=== PATIENT | female | born 1960 | race Caucasian/White ===

== ENCOUNTER 2022-05-26 10:27 | Day surgery (SDC) | payer OTHER ==
[~2022-05-26 10:27] MED LIST: Acetaminophen 325 MG Tab PO SCH; Lactated Ringers 1,000 ML IV SCH; Lidocaine 1%/Sod Bicarbonate in NS 8.4% 1 ML Syringe IDERM PRN; Morphine 8 MG, EPINEPHrine 0.3 MG, Cefuroxime 750 MG, Ketorolac 30 MG, Sodium Chloride ... PRN; Pregabalin 25 MG Cap PO SCH; Sodium Chloride 0.9% 10 ML Syringe FLUSH PRN; Sodium Chloride 0.9% 10 ML Syringe FLUSH SCH; oxyCODONE ER 10 MG TAB.ER PO SCH
[2022-05-26] MEDS ORDERED: Ondansetron 4 MG/2 ML SDV IVPUSH PRN (10:54)
[2022-05-26] MEDS ORDERED: HYDROmorphone 0.5 MG/0.5 ML Syringe IVPUSH PRN (10:54)
[2022-05-26] MEDS ORDERED: fentaNYL 100 MCG/2 ML SDV IVPUSH PRN (10:54)
[2022-05-26] MEDS ORDERED: Scopolamine 1.5 MG Transdermal Patch TRDERM PRN (11:07)
[2022-05-26] MEDS ORDERED: Propofol 200 MG/20 ML SDV ONE ×2 (11:28→14:04)
[2022-05-26] MEDS ORDERED: Midazolam 1 MG/ML 2 ML SDV ONE (11:29)
[2022-05-26] MEDS ORDERED: fentaNYL 100 MCG/2 ML SDV ONE (11:29)
[2022-05-26] MEDS ORDERED: Vancomycin 1 GM SDV ONE (12:25)
[2022-05-26] MEDS ORDERED: Bupivacaine 0.25% 10 ML SDV ONE (12:25)
[2022-05-26] MEDS ORDERED: Triamcinolone Acetonide 40 MG/ML 1 ML SDV ONE (12:25)
[2022-05-26] MEDS ORDERED: Ropivacaine 0.5% 5 MG/ML 30 ML SDV ONE (12:58)
[2022-05-26] MEDS ORDERED: ceFAZolin 2 GM Vial ONE (13:19)
[2022-05-26] MEDS ORDERED: Lidocaine 1% 5 ML VIAL ONE (13:41)
[2022-05-26] MEDS ORDERED: Dexamethasone 4 MG/ML 5 ML MDV ONE (14:01)
[2022-05-26] MEDS ORDERED: Ondansetron 4 MG/2 ML SDV ONE (14:01)
[2022-05-26] MEDS ORDERED: oxyCODONE 5 MG Tab PO SCH (15:19)
[2022-05-26] MEDS ORDERED: Promethazine 12.5 MG in Sodium Chloride 0.9% 50 ML IV ONE (16:45)
== END 2022-05-26 17:45 | disposition home or self-care (01) ==
LOC: JD.SDS 10:27
PROVIDERS: ATTEND Orthopaedic Surgery
DX: M17.0 Bilateral primary osteoarthritis of knee (principal); M81.0 Age-related osteoporosis without current pathological fracture; F32.A Depression, unspecified; Z98.890 Other specified postprocedural states; Z88.5 Allergy status to narcotic agent
CPT/HCPCS: 01402; 64450; 73560-26-RT; 73560-RT; 76942; 97116-GP; 97161-GP; A9270-GY; C1713; C1776; J0171; J0690; J0697; J1100; J1885; J2250; J2270; J2405; J2550; J2704; J2795; J3010; J3301; J3370; J3490; J7120